=== PATIENT | male | born 1955 | race African-American/Black ===

== ENCOUNTER 2020-06-24 01:25 | Emergency (ER) | payer MEDICARE, MEDICAID ==
[~2020-06-24] VITALS: Ht 177.8 cm; Wt 105.0 kg
[~2020-06-24 01:25] MED LIST: LIPITOR
[2020-06-24] MEDS ORDERED: ONDANSETRON HCL 4MG/2ML INJ IV STA (02:08)
[2020-06-24 02:53] LABS: BASOPHILS % 1.2 % (0.0-2.0); EOSINOPHILS % 0.6 % (0.0-5.0); HEMATOCRIT. 47.5 % (42.0-52.0); LYMPHOCYTES % 27.6 % (20.0-50.0); MEAN CORPUSCULAR HEMOGLOBIN 24.4 pg (28.0-32.0); MEAN CORPUSCULAR VOLUME 77.3 fL (80.0-94.0); MONOCYTES % 7.8 % (2.0-8.0); NEUTROPHILS % 62.8 % (40.0-76.0); RED BLOOD CELL COUNT 6.14 mill/uL (4.7-6.1); RED CELL DISTRIBUTION WIDTH 14.9 % (11.6-14.6)
[2020-06-24 03:12] LABS: INR 1.2; PROTHROMBIN TIME 12.1 sec (9.6-11.0)
[2020-06-24 03:19] LABS: CHLORIDE 109 mEq/L (98-107)
[2020-06-24 03:27] LABS: ETHANOL BLOOD < 10 mg/dL
[2020-06-24 04:53] LABS: PLATELET 179 x1000/uL (130-400)
[2020-06-24 04:54] LABS: MEAN PLATELET VOLUME 9.1 fl (7.4-10.4)
[2020-06-24 05:00] VITALS: BP 151/81
[2020-06-24 05:57] LABS: CLARITY URINE CLEAR (CLEAR); COLOR URINE DARK YELLOW (YELLOW); KETONES URINE TRACE (NEGATIVE); LEUKOCYTE ESTERASE URINE NEGATIVE (NEGATIVE); NITRITE URINE NEGATIVE (NEGATIVE); OCCULT BLOOD URINE NEGATIVE (NEGATIVE); PROTEIN URINE 1+ (NEGATIVE); SPECIFIC GRAVITY URINE 1.028 (1.005-1.030)
[2020-06-24 06:12] LABS: *AMPHETAMINES SCREEN URINE NEGATIVE (NEGATIVE); *BARBITURATES SCREEN URINE NEGATIVE (NEGATIVE); *BENZODIAZEPINES SCREEN URINE NEGATIVE (NEGATIVE)
[2020-06-24 06:14] LABS: *COCAINE SCREEN URINE PRESUMTIVE POSITIVE (NEGATIVE); CANNABINOID URINE SCREEN NEGATIVE (NEGATIVE); METHADONE URINE SCREEN NEGATIVE (NEGATIVE); OPIATES URINE SCREEN NEGATIVE (NEGATIVE); PHENCYCLIDINE URINE SCREEN PRESUMTIVE POSITIVE (NEGATIVE)
== END 2020-06-24 06:10 | disposition home or self-care (01) ==
LOC: ER 01:25
DX: R55 Syncope and collapse (principal); R79.89 Other specified abnormal findings of blood chemistry; R17 Unspecified jaundice; E11.9 Type 2 diabetes mellitus without complications; I10 Essential (primary) hypertension
CPT/HCPCS: 36415; 71045; 80053; 80305; 80320; 81003; 82140; 82962; 83605; 83880; 84484; 85025; 93005; 99285; G0480

== ENCOUNTER 2021-03-22 11:20 | Emergency (ER) | payer MEDICARE, MEDICAID ==
[~2021-03-22] VITALS: Ht 175.3 cm; Wt 100.0 kg
[2021-03-22] MEDS ORDERED: KETOROLAC 30MG/ML VIAL IM ONE (12:30)
[2021-03-22] MEDS ORDERED: ACYCLOVIR 400 MG TABLET PO ONE (12:30)
[2021-03-22] MEDS ORDERED: TETRACAINE 0.5% OPHTH DROPS 4ML RIGHTEYE ONE (12:45)
[2021-03-22] MEDS ORDERED: FLUORESCEIN SODIUM 1MG/STRIP RIGHTEYE ONE (12:45)
[2021-03-22] MEDS ORDERED: IBUP-2029 MT (13:53)
[2021-03-22] MEDS ORDERED: ACYC200C PO (13:53)
[2021-03-22 14:06] VITALS: BP 159/81
== END 2021-03-22 14:08 | disposition home or self-care (01) ==
LOC: ER 11:20
DX: B02.9 Zoster without complications (principal); E11.9 Type 2 diabetes mellitus without complications; I10 Essential (primary) hypertension; Z88.8 Allergy status to other drugs, medicaments and biological substances; Z79.899 Other long term (current) drug therapy
CPT/HCPCS: 96372; 99283; J1885

== ENCOUNTER 2021-03-23 13:09 | Emergency (ER) | payer MEDICARE, MEDICAID ==
[~2021-03-23] VITALS: Ht 182.9 cm; Wt 82.0 kg
[~2021-03-23 13:09] MED LIST changes: +ACYC200C PO; +IBUP-2029 MT
[2021-03-23] MEDS ORDERED: ONDANSETRON HCL 4MG/2ML INJ IV STA (14:25)
[2021-03-23] MEDS ORDERED: MORPHINE SULFATE 4 MG/ML CPJ (NOT FOR IM USE) IV STA (14:25)
[2021-03-23] MEDS ORDERED: METHYLPREDNISOLONE SOD SUCC 125 MG/2 ML VIAL IV ONE (14:30)
[2021-03-23] MEDS ORDERED: DIPHENHYDRAMINE 50MG/ML VIAL IV ONE (14:30)
[2021-03-23 15:11] LABS: BASOPHILS % 1.7 % (0.0-2.0); EOSINOPHILS % 6.6 % (0.0-5.0); HEMATOCRIT. 46.3 % (42.0-52.0); HEMOGLOBIN. 14.9 g/dL (14.0-18.0); LYMPHOCYTES % 23.7 % (20.0-50.0); MEAN CORPUSCULAR HEMOGLOBIN 24.3 pg (28.0-32.0); MEAN CORPUSCULAR VOLUME 75.5 fL (80.0-94.0); MEAN PLATELET VOLUME 8.8 fl (7.4-10.4); MONOCYTES % 13.5 % (2.0-8.0); NEUTROPHILS % 54.5 % (40.0-76.0); PLATELET 180 x1000/uL (130-400); RED BLOOD CELL COUNT 6.14 mill/uL (4.7-6.1); RED CELL DISTRIBUTION WIDTH 14.7 % (11.6-14.6)
[2021-03-23 15:17] LABS: CHLORIDE 109 mEq/L (98-107)
[2021-03-23 20:55] VITALS: BP 158/89
== END 2021-03-23 21:05 | disposition left against medical advice (07) ==
LOC: ER 13:20
DX: B02.9 Zoster without complications (principal); I10 Essential (primary) hypertension; E11.9 Type 2 diabetes mellitus without complications; F17.210 Nicotine dependence, cigarettes, uncomplicated
CPT/HCPCS: 36415; 80053; 85025; 93005; 96374; 96375; 99284; 99406; J1200; J2270; J2405; J2930

== ENCOUNTER 2021-10-20 21:52 | Emergency (ER) | payer MEDICARE, MEDICAID ==
[~2021-10-20] VITALS: Ht 175.3 cm; Wt 84.0 kg
[~2021-10-20 21:52] MED LIST changes: -ACYC200C PO; +ACYC200C31 PO; +GABA100C MT
[2021-10-20] MEDS ORDERED: ONDANSETRON 4MG ODT PO STA (22:26)
[2021-10-20] MEDS ORDERED: SODIUM CHLORIDE 0.9% 1,000 ML IV ONE (22:30)
[2021-10-21 00:51] LABS: CLARITY URINE CLEAR (CLEAR); COLOR URINE DARK YELLOW (YELLOW); KETONES URINE TRACE (NEGATIVE); LEUKOCYTE ESTERASE URINE NEGATIVE (NEGATIVE); NITRITE URINE NEGATIVE (NEGATIVE); OCCULT BLOOD URINE NEGATIVE (NEGATIVE); PH URINE 5.5 (4.5-8.0); PROTEIN URINE 1+ (NEGATIVE); SPECIFIC GRAVITY URINE 1.031 (1.005-1.030)
[2021-10-21 00:51] LABS: BASOPHILS % 1.1 % (0.0-2.0); HEMATOCRIT. 49.6 % (42.0-52.0); HEMOGLOBIN. 15.6 g/dL (14.0-18.0); MEAN CORPUSCULAR VOLUME 76.3 fL (80.0-94.0); MEAN PLATELET VOLUME 8.8 fl (7.4-10.4); MONOCYTES % 10.5 % (2.0-8.0); NEUTROPHILS % 45.4 % (40.0-76.0); PLATELET 222 x1000/uL (130-400); RED BLOOD CELL COUNT 6.51 mill/uL (4.7-6.1)
[2021-10-21 00:55] LABS: CHLORIDE 108 mEq/L (98-107)
[2021-10-21 00:59] LABS: ETHANOL BLOOD < 10 mg/dL
[2021-10-21 01:08] LABS: *COCAINE SCREEN URINE PRESUMTIVE POSITIVE (NEGATIVE)
[2021-10-21 01:09] LABS: *AMPHETAMINES SCREEN URINE PRESUMTIVE POSITIVE (NEGATIVE); *BENZODIAZEPINES SCREEN URINE NEGATIVE (NEGATIVE); CANNABINOID URINE SCREEN NEGATIVE (NEGATIVE); METHADONE URINE SCREEN NEGATIVE (NEGATIVE); OPIATES URINE SCREEN PRESUMTIVE POSITIVE (NEGATIVE); PHENCYCLIDINE URINE SCREEN PRESUMTIVE POSITIVE (NEGATIVE)
[2021-10-21 01:10] LABS: *BARBITURATES SCREEN URINE NEGATIVE (NEGATIVE)
[2021-10-21 15:02] VITALS: BP 145/86
== END 2021-10-21 15:27 | disposition home or self-care (01) ==
LOC: ER 21:52
DX: F10.129 Alcohol abuse with intoxication, unspecified (principal); R45.851 Suicidal ideations; R45.850 Homicidal ideations; F14.10 Cocaine abuse, uncomplicated; F16.10 Hallucinogen abuse, uncomplicated; F15.10 Other stimulant abuse, uncomplicated; Y90.0 Blood alcohol level of less than 20 mg/100 ml; Z20.822 Contact with and (suspected) exposure to COVID-19; Z63.0 Problems in relationship with spouse or partner; F11.10 Opioid abuse, uncomplicated; R44.0 Auditory hallucinations; Z91.14 Patient's other noncompliance with medication regimen
CPT/HCPCS: 36415; 80053; 80305; 80320; 81003; 85025; 99285; C9803; J7030; Q0162; U0003; U0005; G0480

== ENCOUNTER 2021-10-24 01:18 | Emergency (ER) | payer MEDICARE, MEDICAID ==
[~2021-10-24] VITALS: Ht 175.3 cm; Wt 100.0 kg
[2021-10-24 01:19] VITALS: BP 138/60
== END 2021-10-24 04:00 | disposition home or self-care (01) ==
LOC: ER 01:18
DX: F41.9 Anxiety disorder, unspecified (principal); I10 Essential (primary) hypertension; E11.9 Type 2 diabetes mellitus without complications; Z88.6 Allergy status to analgesic agent; Z86.59 Personal history of other mental and behavioral disorders
CPT/HCPCS: 99283

== ENCOUNTER 2021-10-30 00:42 | Emergency (ER) | payer MEDICARE, MEDICAID ==
[~2021-10-30] VITALS: Ht 177.8 cm; Wt 73.0 kg
[2021-10-30 00:50] VITALS: BP 131/82
== END 2021-10-30 05:04 | disposition home or self-care (01) ==
LOC: ER 00:42
DX: M47.892 Other spondylosis, cervical region (principal); I10 Essential (primary) hypertension; E11.9 Type 2 diabetes mellitus without complications; F14.90 Cocaine use, unspecified, uncomplicated; F11.90 Opioid use, unspecified, uncomplicated
CPT/HCPCS: 71045; 99283

== ENCOUNTER 2021-10-31 17:53 | Emergency (ER) | payer MEDICARE, MEDICAID ==
[~2021-10-31] VITALS: Ht 175.3 cm; Wt 84.0 kg
[2021-10-31 19:56] LABS: BASOPHILS % 0.9 % (0.0-2.0); EOSINOPHILS % 3.2 % (0.0-5.0); HEMATOCRIT. 46.5 % (42.0-52.0); HEMOGLOBIN. 14.9 g/dL (14.0-18.0); LYMPHOCYTES % 33.9 % (20.0-50.0); MEAN CORPUSCULAR HEMOGLOBIN 24.3 pg (28.0-32.0); MEAN CORPUSCULAR VOLUME 75.7 fL (80.0-94.0); MEAN PLATELET VOLUME 8.8 fl (7.4-10.4); MONOCYTES % 8.4 % (2.0-8.0); NEUTROPHILS % 53.6 % (40.0-76.0); PLATELET 227 x1000/uL (130-400); RED BLOOD CELL COUNT 6.15 mill/uL (4.7-6.1); RED CELL DISTRIBUTION WIDTH 14.7 % (11.6-14.6)
[2021-10-31 20:02] LABS: CHLORIDE 112 mEq/L (98-107)
[2021-10-31 20:08] LABS: ETHANOL BLOOD < 10 mg/dL
[2021-10-31 21:53] LABS: CLARITY URINE CLEAR (CLEAR); COLOR URINE YELLOW (YELLOW); KETONES URINE NEGATIVE (NEGATIVE); LEUKOCYTE ESTERASE URINE NEGATIVE (NEGATIVE); NITRITE URINE NEGATIVE (NEGATIVE); OCCULT BLOOD URINE NEGATIVE (NEGATIVE); PROTEIN URINE NEGATIVE (NEGATIVE); SPECIFIC GRAVITY URINE 1.018 (1.005-1.030)
[2021-10-31] MEDS ORDERED: ZOLPIDEM TARTRATE 5MG TABLET PO ONE (22:00)
[2021-10-31 22:05] LABS: *AMPHETAMINES SCREEN URINE NEGATIVE (NEGATIVE); *BARBITURATES SCREEN URINE NEGATIVE (NEGATIVE); *BENZODIAZEPINES SCREEN URINE PRESUMTIVE POSITIVE (NEGATIVE); *COCAINE SCREEN URINE PRESUMTIVE POSITIVE (NEGATIVE); CANNABINOID URINE SCREEN NEGATIVE (NEGATIVE)
[2021-10-31 22:06] LABS: METHADONE URINE SCREEN NEGATIVE (NEGATIVE); OPIATES URINE SCREEN PRESUMTIVE POSITIVE (NEGATIVE); PHENCYCLIDINE URINE SCREEN PRESUMTIVE POSITIVE (NEGATIVE)
[2021-11-02 12:00] VITALS: BP 135/85
== END 2021-11-02 12:46 | disposition home or self-care (01) ==
LOC: ER 17:53
DX: R45.851 Suicidal ideations (principal); F14.10 Cocaine abuse, uncomplicated; E11.9 Type 2 diabetes mellitus without complications; I10 Essential (primary) hypertension; Z20.822 Contact with and (suspected) exposure to COVID-19; Z86.59 Personal history of other mental and behavioral disorders
CPT/HCPCS: 36415; 80053; 80305; 80307; 80320; 80329; 81003; 85025; 93005; 99285; C9803; U0003; U0005; G0480

== ENCOUNTER 2021-11-27 07:02 | Emergency (ER) | payer MEDICARE, MEDICAID ==
[~2021-11-27] VITALS: Ht 182.9 cm; Wt 115.0 kg
[2021-11-27 07:07] VITALS: BP 110/70
[2021-11-27 09:43] LABS: CLARITY URINE CLEAR (CLEAR); COLOR URINE YELLOW (YELLOW); KETONES URINE NEGATIVE (NEGATIVE); LEUKOCYTE ESTERASE URINE NEGATIVE (NEGATIVE); NITRITE URINE NEGATIVE (NEGATIVE); OCCULT BLOOD URINE NEGATIVE (NEGATIVE); PROTEIN URINE NEGATIVE (NEGATIVE); SPECIFIC GRAVITY URINE 1.003 (1.005-1.030); UROBILINOGEN URINE 0.2 E.U./dL (0.2-1.0)
[2021-11-27 10:12] LABS: *AMPHETAMINES SCREEN URINE NEGATIVE (NEGATIVE); *BARBITURATES SCREEN URINE NEGATIVE (NEGATIVE); *BENZODIAZEPINES SCREEN URINE NEGATIVE (NEGATIVE)
[2021-11-27 10:13] LABS: *COCAINE SCREEN URINE PRESUMTIVE POSITIVE (NEGATIVE); CANNABINOID URINE SCREEN NEGATIVE (NEGATIVE); METHADONE URINE SCREEN NEGATIVE (NEGATIVE); OPIATES URINE SCREEN NEGATIVE (NEGATIVE); PHENCYCLIDINE URINE SCREEN NEGATIVE (NEGATIVE)
== END 2021-11-27 10:31 | disposition left against medical advice (07) ==
LOC: ER 07:42
DX: F11.10 Opioid abuse, uncomplicated (principal); E11.9 Type 2 diabetes mellitus without complications; I10 Essential (primary) hypertension
CPT/HCPCS: 80305; 81003; 99283

== ENCOUNTER 2022-03-08 13:33 | Emergency (ER) | payer MEDICARE, MEDICAID ==
[~2022-03-08] VITALS: Ht 185.4 cm; Wt 86.0 kg
[~2022-03-08 13:33] MED LIST changes: +QUET25TA MT
[2022-03-08 13:41] VITALS: BP 143/92
[2022-03-08] MEDS ORDERED: LOSA25TA26 MT (14:12)
[2022-03-08] MEDS ORDERED: METF-414 MT (14:12)
[2022-03-08] MEDS ORDERED: QUET25TA MT (14:12)
[2022-03-08] MEDS ORDERED: TOPUD MT (14:57)
== END 2022-03-08 15:00 | disposition home or self-care (01) ==
LOC: ER 13:33
DX: Z76.0 Encounter for issue of repeat prescription (principal); I10 Essential (primary) hypertension; E11.9 Type 2 diabetes mellitus without complications; F31.9 Bipolar disorder, unspecified
CPT/HCPCS: 99283

== ENCOUNTER 2022-10-14 12:14 | Emergency (ER) | payer MEDICARE, MEDICAID ==
[~2022-10-14] VITALS: Ht 175.3 cm; Wt 93.0 kg
[~2022-10-14 12:14] MED LIST changes: -ACYC200C31 PO; +DILT120C88 MT; -IBUP-2029 MT; +LOSA50TA3 PO; +METF-414 MT; +TOPUD MT
[2022-10-14 12:30] VITALS: BP 137/87
[2022-10-14 19:31] LABS: BASOPHILS % 0.8 % (0.0-2.0); EOSINOPHILS % 4.8 % (0.0-5.0); HEMOGLOBIN. 13.5 g/dL (14.0-18.0); LYMPHOCYTES % 33.6 % (20.0-50.0); MEAN CORPUSCULAR HEMOGLOBIN 24.5 pg (28.0-32.0); MEAN CORPUSCULAR VOLUME 78.3 fL (80.0-94.0); MEAN PLATELET VOLUME 9.2 fl (7.4-10.4); MONOCYTES % 11.1 % (2.0-8.0); NEUTROPHILS % 49.7 % (40.0-76.0); PLATELET 161 x1000/uL (130-400); RED BLOOD CELL COUNT 5.49 mill/uL (4.7-6.1); RED CELL DISTRIBUTION WIDTH 15.6 % (11.6-14.6)
[2022-10-14 19:40] LABS: CHLORIDE 112 mEq/L (98-107)
[2022-10-14] MEDS ORDERED: FURO-152 PO (23:11)
[2022-10-14] MEDS ORDERED: TRAM50TA3 MT (23:12)
[2022-10-14] MEDS ORDERED: ACET-3524 PO (23:17)
== END 2022-10-15 00:53 | disposition home or self-care (01) ==
LOC: ER 12:14
DX: I11.0 Hypertensive heart disease with heart failure (principal); I50.9 Heart failure, unspecified; Z91.14 Patient's other noncompliance with medication regimen; R94.31 Abnormal electrocardiogram [ECG] [EKG]
CPT/HCPCS: 36415; 71045; 80053; 84484; 85025; 93005; 99285

== ENCOUNTER 2022-10-27 22:23 | Inpatient (IN) | payer MEDICARE, MEDICAID ==
[~2022-10-27] VITALS: Ht 175.3 cm; Wt 81.6 kg
[~2022-10-27 22:23] MED LIST changes: +ACET-3524 PO; +FURO-152 PO
[2022-10-27 23:16] LABS: HEMATOCRIT. 45.7 % (42.0-52.0); HEMOGLOBIN. 14.2 g/dL (14.0-18.0); MEAN CORPUSCULAR HEMOGLOBIN 24.6 pg (28.0-32.0); MEAN CORPUSCULAR VOLUME 79.1 fL (80.0-94.0); MEAN PLATELET VOLUME 9.6 fl (7.4-10.4); PLATELET 137 x1000/uL (130-400); RED BLOOD CELL COUNT 5.78 mill/uL (4.7-6.1); RED CELL DISTRIBUTION WIDTH 16.1 % (11.6-14.6)
[2022-10-27 23:25] LABS: CHLORIDE 112 mEq/L (98-107)
[2022-10-27 23:34] LABS: ETHANOL BLOOD < 10 mg/dL
[2022-10-27 23:42] LABS: INR 1.5; PROTHROMBIN TIME 15.3 sec (9.6-11.0)
[2022-10-28 00:04] LABS: NUCLEATED RED BLOOD CELLS 1 /100 WBC; PLATELET ESTIMATE NORMAL
[2022-10-28 00:24] LABS: CLARITY URINE CLOUDY (CLEAR); COLOR URINE DARK YELLOW (YELLOW); KETONES URINE TRACE (NEGATIVE); LEUKOCYTE ESTERASE URINE 1+ (NEGATIVE); NITRITE URINE NEGATIVE (NEGATIVE); OCCULT BLOOD URINE NEGATIVE (NEGATIVE); PROTEIN URINE 3+ (NEGATIVE); SPECIFIC GRAVITY URINE 1.025 (1.005-1.030)
[2022-10-28 00:46] LABS: *AMPHETAMINES SCREEN URINE NEGATIVE (NEGATIVE); *BARBITURATES SCREEN URINE NEGATIVE (NEGATIVE); *BENZODIAZEPINES SCREEN URINE NEGATIVE (NEGATIVE); *COCAINE SCREEN URINE PRESUMTIVE POSITIVE (NEGATIVE); CANNABINOID URINE SCREEN PRESUMTIVE POSITIVE (NEGATIVE); METHADONE URINE SCREEN NEGATIVE (NEGATIVE); OPIATES URINE SCREEN PRESUMTIVE POSITIVE (NEGATIVE); PHENCYCLIDINE URINE SCREEN PRESUMTIVE POSITIVE (NEGATIVE)
[2022-10-28] MEDS ORDERED: LORAZEPAM 2MG/ML CPJ IV NR (01:15)
[2022-10-28] MEDS ORDERED: FUROSEMIDE 40MG/4ML VIAL IVP ONE (04:00)
[2022-10-28] MEDS ORDERED: ACETAMINOPHEN 325MG TABLET PO PRN (12:15)
[2022-10-28] MEDS ORDERED: ONDANSETRON HCL 4MG/2ML INJ IV PRN (12:15)
[2022-10-28 16:00] VITALS: BP 149/84
[2022-10-28 16:39] VITALS: BP 149/84
[2022-10-28] MEDS ORDERED: METOLAZONE 2.5MG TABLET PO NR (16:45)
[2022-10-28] MEDS ORDERED: FUROSEMIDE 100MG/10ML VIAL IVP SCH (17:00)
[2022-10-28 20:00] VITALS: BP 139/99
[2022-10-28] MEDS: FUROSEMIDE 40MG TABLET PO SCH (21:07)
[2022-10-28] MEDS: HYDROCODONE/ACETAMINOPHEN 10/325MG TABLET PO PRN (21:54)
[2022-10-28] MEDS ORDERED: NALOXONE HCL 0.4MG/ML VIAL IV PRN (22:00)
[2022-10-29] VITALS: BP 152/82
[2022-10-29 04:00] VITALS: BP 167/66
[2022-10-29 06:45] LABS: BASOPHILS % 0.6 % (0.0-2.0); EOSINOPHILS % 5.6 % (0.0-5.0); HEMATOCRIT. 40.6 % (42.0-52.0); HEMOGLOBIN. 12.9 g/dL (14.0-18.0); LYMPHOCYTES % 38.4 % (20.0-50.0); MEAN CORPUSCULAR HEMOGLOBIN 24.4 pg (28.0-32.0); MEAN CORPUSCULAR VOLUME 76.7 fL (80.0-94.0); MEAN PLATELET VOLUME 10.1 fl (7.4-10.4); MONOCYTES % 14.9 % (2.0-8.0); NEUTROPHILS % 40.5 % (40.0-76.0); PLATELET 136 x1000/uL (130-400); RED BLOOD CELL COUNT 5.29 mill/uL (4.7-6.1); RED CELL DISTRIBUTION WIDTH 15.4 % (11.6-14.6)
[2022-10-29 07:59] LABS: CHLORIDE 106 mEq/L (98-107)
[2022-10-29 08:00] VITALS: BP 146/90
[2022-10-29] MEDS: FUROSEMIDE 40MG TABLET PO SCH (08:36)
[2022-10-29] MEDS: HYDROCODONE/ACETAMINOPHEN 10/325MG TABLET PO PRN (08:50)
[2022-10-29] MEDS ORDERED: LOSARTAN POTASSIUM 50 MG TABLET PO SCH (09:00)
[2022-10-29] MEDS ORDERED: SPIRONOLACTONE 25MG TABLET PO SCH (09:00)
[2022-10-29 12:00] VITALS: BP 143/77
[2022-10-29] MEDS ORDERED: CARV12.545 MT (12:00)
[2022-10-29] MEDS ORDERED: POTA-205 MT (12:00)
[2022-10-29] MEDS ORDERED: METOLAZONE 2.5MG TABLET PO NR (12:00)
[2022-10-29] MEDS ORDERED: SPIR25TA PO (12:00)
[2022-10-29] MEDS ORDERED: LOSA50TA3 PO (12:00)
[2022-10-29] MEDS ORDERED: FURO40TA5 PO (12:00)
[2022-10-29 12:41] VITALS: BP 143/77
[2022-10-29] MEDS ORDERED: FUROSEMIDE 40MG TABLET PO NR (15:30)
== END 2022-10-29 19:49 | disposition home or self-care (01) | DRG 194 ==
LOC: ER 22:23 → 3WST 10-28 03:49 → EDBEDREQTM 10-28 03:55 → EDBEDREQ 10-28 03:55
PROVIDERS: ADMIT Internal Medicine; ATTEND Internal Medicine
DX: I11.0 Hypertensive heart disease with heart failure (principal); N17.0 Acute kidney failure with tubular necrosis; E44.1 Mild protein-calorie malnutrition; I50.23 Acute on chronic systolic (congestive) heart failure; E11.9 Type 2 diabetes mellitus without complications; F19.10 Other psychoactive substance abuse, uncomplicated; F20.9 Schizophrenia, unspecified; F17.210 Nicotine dependence, cigarettes, uncomplicated; I42.9 Cardiomyopathy, unspecified; R74.01 Elevation of levels of liver transaminase levels; F31.9 Bipolar disorder, unspecified; Z91.14 Patient's other noncompliance with medication regimen; Z88.6 Allergy status to analgesic agent; Z68.26 Body mass index [BMI] 26.0-26.9, adult; Z82.49 Family history of ischemic heart disease and other diseases of the circulatory system
CPT/HCPCS: 36415; 71045; 76705; 76870; 80048; 80053; 80305; 80320; 81003; 82248; 83605; 83880; 84484; 85025; 93970; 93976; 99285; C1893; J1940; J2060; G0480

== ENCOUNTER 2023-02-04 10:07 | Inpatient (IN) | payer MEDICARE, MEDICAID ==
[~2023-02-04] VITALS: Ht 182.9 cm; Wt 95.3 kg
[~2023-02-04 10:07] MED LIST changes: +CARV12.545 MT; -DILT120C88 MT; -FURO-152 PO; +FURO40TA5 PO; +POTA-205 MT; +SPIR25TA PO
[2023-02-04] MEDS ORDERED: FUROSEMIDE 40MG/4ML VIAL IVP NR (10:30)
[2023-02-04 18:53] LABS: BASOPHILS % 1.3 % (0.0-2.0); EOSINOPHILS % 3.2 % (0.0-5.0); HEMATOCRIT. 46.4 % (42.0-52.0); HEMOGLOBIN. 14.6 g/dL (14.0-18.0); LYMPHOCYTES % 34.8 % (20.0-50.0); MEAN CORPUSCULAR HEMOGLOBIN 25.4 pg (28.0-32.0); MEAN PLATELET VOLUME 8.8 fl (7.4-10.4); MONOCYTES % 16.2 % (2.0-8.0); NEUTROPHILS % 44.5 % (40.0-76.0); PLATELET 152 x1000/uL (130-400); RED BLOOD CELL COUNT 5.73 mill/uL (4.7-6.1); RED CELL DISTRIBUTION WIDTH 16.9 % (11.6-14.6)
[2023-02-04 19:01] LABS: CHLORIDE 109 mEq/L (98-107)
[2023-02-04 19:03] LABS: INR 1.7; PROTHROMBIN TIME 17.7 sec (9.6-11.0)
[2023-02-04] MEDS ORDERED: CARVEDILOL 6.25 MG TABLET PO SCH (19:11)
[2023-02-04 20:19] LABS: ETHANOL BLOOD < 10 mg/dL
[2023-02-04 20:24] LABS: CLARITY URINE CLOUDY (CLEAR); COLOR URINE DARK YELLOW (YELLOW); KETONES URINE NEGATIVE (NEGATIVE); LEUKOCYTE ESTERASE URINE 2+ (NEGATIVE); NITRITE URINE NEGATIVE (NEGATIVE); OCCULT BLOOD URINE 2+ (NEGATIVE); PH URINE 5.5 (4.5-8.0); PROTEIN URINE 1+ (NEGATIVE); SPECIFIC GRAVITY URINE 1.015 (1.005-1.030)
[2023-02-04 20:53] LABS: *AMPHETAMINES SCREEN URINE NEGATIVE (NEGATIVE); *BARBITURATES SCREEN URINE NEGATIVE (NEGATIVE); *BENZODIAZEPINES SCREEN URINE NEGATIVE (NEGATIVE); *COCAINE SCREEN URINE PRESUMTIVE POSITIVE (NEGATIVE); CANNABINOID URINE SCREEN NEGATIVE (NEGATIVE); METHADONE URINE SCREEN NEGATIVE (NEGATIVE); OPIATES URINE SCREEN PRESUMTIVE POSITIVE (NEGATIVE); PHENCYCLIDINE URINE SCREEN PRESUMTIVE POSITIVE (NEGATIVE)
[2023-02-04] MEDS ORDERED: DIGOXIN 500MCG/2ML AMP IV NR (22:00)
[2023-02-05 00:39] LABS: CHLORIDE 110 mEq/L (98-107)
[2023-02-05 01:25] LABS: DIGOXIN < 0.1 ng/mL (0.9-2.0)
[2023-02-05 01:45] VITALS: BP 98/72
[2023-02-05 04:00] VITALS: BP 100/54
[2023-02-05] MEDS ORDERED: ONDANSETRON HCL 4MG/2ML INJ IV PRN (04:15)
[2023-02-05] MEDS ORDERED: ACETAMINOPHEN 325MG TABLET PO PRN (04:15)
[2023-02-05 08:00] VITALS: BP 107/80
[2023-02-05] MEDS: FUROSEMIDE 40MG/4ML VIAL IVP SCH ×2 (08:54→21:24)
[2023-02-05] MEDS: GABAPENTIN 100MG CAPSULE PO SCH ×3 (08:54→18:01)
[2023-02-05] MEDS: SPIRONOLACTONE 25MG TABLET PO SCH (08:54)
[2023-02-05] MEDS ORDERED: CARVEDILOL 12.5MG TABLET PO SCH (09:00)
[2023-02-05] MEDS ORDERED: METFORMIN HCL 500MG TABLET PO SCH (09:00)
[2023-02-05] MEDS ORDERED: FUROSEMIDE 40MG/4ML VIAL IVP SCH (09:00)
[2023-02-05] MEDS ORDERED: LOSARTAN POTASSIUM 50 MG TABLET PO SCH (09:00)
[2023-02-05] MEDS ORDERED: CARVEDILOL 6.25 MG TABLET PO SCH (09:00)
[2023-02-05 12:00] VITALS: BP 100/66
[2023-02-05 16:00] VITALS: BP 110/61
[2023-02-05 20:00] VITALS: BP 120/75
[2023-02-05 20:21] LABS: BASOPHILS % 0.6 % (0.0-2.0); EOSINOPHILS % 3.4 % (0.0-5.0); HEMATOCRIT. 44.2 % (42.0-52.0); LYMPHOCYTES % 38.3 % (20.0-50.0); MEAN CORPUSCULAR HEMOGLOBIN 25.4 pg (28.0-32.0); MEAN CORPUSCULAR VOLUME 80.5 fL (80.0-94.0); MEAN PLATELET VOLUME 9.6 fl (7.4-10.4); MONOCYTES % 13.6 % (2.0-8.0); NEUTROPHILS % 44.1 % (40.0-76.0); PLATELET 143 x1000/uL (130-400); RED BLOOD CELL COUNT 5.49 mill/uL (4.7-6.1); RED CELL DISTRIBUTION WIDTH 16.6 % (11.6-14.6)
[2023-02-05 20:28] LABS: INR 1.7; PROTHROMBIN TIME 17.2 sec (9.6-11.0)
[2023-02-05 20:35] LABS: CHLORIDE 109 mEq/L (98-107)
[2023-02-05] MEDS ORDERED: ENOXAPARIN 30MG/0.3ML SYR SUBCUT SCH (21:00)
[2023-02-05] MEDS ORDERED: QUETIAPINE FUMARATE 25MG TABLET PO SCH (21:00)
[2023-02-05] MEDS ORDERED: ATORVASTATIN CALCIUM 40MG TABLET PO SCH (21:00)
[2023-02-05] MEDS ORDERED: CARVEDILOL 3.125 MG TABLET PO SCH (21:00)
[2023-02-05 21:15] LABS: HEPATITIS B SURFACE ANTIGEN NEGATIVE
[2023-02-06] VITALS: BP 121/78
[2023-02-06 04:00] VITALS: BP 130/82
[2023-02-06 08:00] VITALS: BP 112/80
[2023-02-06] MEDS ORDERED: LOSARTAN POTASSIUM 25 MG TABLET PO SCH (09:00)
[2023-02-06] MEDS: FUROSEMIDE 40MG/4ML VIAL IVP SCH (09:33)
[2023-02-06] MEDS: GABAPENTIN 100MG CAPSULE PO SCH ×2 (09:33→13:08)
[2023-02-06] MEDS: SPIRONOLACTONE 25MG TABLET PO SCH (09:33)
[2023-02-06] MEDS ORDERED: METOLAZONE 2.5MG TABLET PO NR (10:30)
[2023-02-06 12:00] VITALS: BP 149/90
[2023-02-06] MEDS ORDERED: FURO40TA5 PO (12:12)
[2023-02-06] MEDS ORDERED: CARV12.545 MT (12:12)
[2023-02-06] MEDS ORDERED: LOSA50TA3 PO (12:12)
[2023-02-06 12:48] VITALS: BP 142/90
[2023-02-06] MEDS ORDERED: TAMS-11 MT (13:36)
== END 2023-02-06 17:20 | disposition home or self-care (01) | DRG 194 ==
LOC: ER 10:38 → MICUSO 12:59 → EDBEDREQTM 13:15 → EDBEDREQ 13:15 → 7EST 02-05 01:55
PROVIDERS: ADMIT Internal Medicine; ATTEND Internal Medicine
DX: I11.0 Hypertensive heart disease with heart failure (principal); J96.00 Acute respiratory failure, unspecified whether with hypoxia or hypercapnia; N17.0 Acute kidney failure with tubular necrosis; G92.9 Unspecified toxic encephalopathy; E44.0 Moderate protein-calorie malnutrition; I50.23 Acute on chronic systolic (congestive) heart failure; I42.9 Cardiomyopathy, unspecified; K74.60 Unspecified cirrhosis of liver; R74.01 Elevation of levels of liver transaminase levels; F20.9 Schizophrenia, unspecified; R73.03 Prediabetes; F19.10 Other psychoactive substance abuse, uncomplicated; F14.10 Cocaine abuse, uncomplicated; F17.210 Nicotine dependence, cigarettes, uncomplicated; Z88.6 Allergy status to analgesic agent; Z82.49 Family history of ischemic heart disease and other diseases of the circulatory system; Z79.899 Other long term (current) drug therapy; Z68.28 Body mass index [BMI] 28.0-28.9, adult
CPT/HCPCS: 36415; 71045; 74176; 80048; 80053; 80162; 80305; 80320; 81003; 84484; 85025; 86803; 87186; 87340; 99285; J1160; J1940; G0480

== ENCOUNTER 2023-04-11 07:25 | Inpatient (IN) | payer MEDICARE, MEDICAID ==
[~2023-04-11] VITALS: Ht 175.3 cm; Wt 90.7 kg
[~2023-04-11 07:25] MED LIST changes: +LOSA-413 PO; -LOSA50TA3 PO; +TAMS-11 MT
[2023-04-11] MEDS ORDERED: FUROSEMIDE 40MG/4ML VIAL IVP ONE (08:00)
[2023-04-11 08:57] LABS: BASOPHILS % 0.6 % (0.0-2.0); EOSINOPHILS % 2.6 % (0.0-5.0); HEMATOCRIT. 41.7 % (42.0-52.0); HEMOGLOBIN. 13.1 g/dL (14.0-18.0); LYMPHOCYTES % 38.6 % (20.0-50.0); MEAN CORPUSCULAR HEMOGLOBIN 25.6 pg (28.0-32.0); MEAN CORPUSCULAR VOLUME 81.5 fL (80.0-94.0); MEAN PLATELET VOLUME 9.4 fl (7.4-10.4); MONOCYTES % 13.3 % (2.0-8.0); NEUTROPHILS % 44.9 % (40.0-76.0); PLATELET 133 x1000/uL (130-400); RED BLOOD CELL COUNT 5.11 mill/uL (4.7-6.1); RED CELL DISTRIBUTION WIDTH 16.9 % (11.6-14.6)
[2023-04-11 09:04] LABS: CHLORIDE 113 mEq/L (98-107)
[2023-04-11] MEDS ORDERED: CEFTRIAXONE 1GM PREMIX 50 ML IV NR (10:45)
[2023-04-11] MEDS ORDERED: FUROSEMIDE 40MG/4ML VIAL IVP NR (11:00)
[2023-04-11] MEDS ORDERED: CARVEDILOL 12.5MG TABLET PO NR (12:00)
[2023-04-11] MEDS: FUROSEMIDE 100MG/10ML VIAL IVP SCH ×2 (12:00→16:16)
[2023-04-11] MEDS ORDERED: ONDANSETRON HCL 4MG/2ML INJ IV PRN (12:00)
[2023-04-11 14:00] VITALS: BP_SYST 152; BP_DIAS 11; BP_DIAS 52
[2023-04-11] MEDS ORDERED: NALOXONE HCL 0.4MG/ML VIAL IV PRN (14:30)
[2023-04-11] MEDS ORDERED: TRAMADOL 50MG TABLET PO PRN (14:30)
[2023-04-11 16:00] VITALS: BP 158/107
[2023-04-11 17:11] LABS: *AMPHETAMINES SCREEN URINE NEGATIVE (NEGATIVE); *BARBITURATES SCREEN URINE NEGATIVE (NEGATIVE); *BENZODIAZEPINES SCREEN URINE NEGATIVE (NEGATIVE); *COCAINE SCREEN URINE PRESUMTIVE POSITIVE (NEGATIVE); CANNABINOID URINE SCREEN NEGATIVE (NEGATIVE); METHADONE URINE SCREEN NEGATIVE (NEGATIVE); OPIATES URINE SCREEN NEGATIVE (NEGATIVE); PHENCYCLIDINE URINE SCREEN NEGATIVE (NEGATIVE)
[2023-04-11] MEDS ORDERED: POTA-205 MT (17:39)
[2023-04-11] MEDS ORDERED: GABA-529 MT (17:39)
[2023-04-11 20:00] VITALS: BP 144/95
[2023-04-11] MEDS: CARVEDILOL 12.5MG TABLET PO SCH (20:56)
[2023-04-11] MEDS ORDERED: ZOLPIDEM TARTRATE 5MG TABLET PO PRN (21:00)
[2023-04-11] MEDS ORDERED: HYDROCODONE/ACETAMINOPHEN 5/325MG TABLET PO PRN (22:00)
[2023-04-11] MEDS: HYDROCODONE/ACETAMINOPHEN 5/325MG TABLET PO PRN (22:55)
[2023-04-12 00:46] VITALS: BP 140/91
[2023-04-12 04:00] VITALS: BP 126/83
[2023-04-12 07:21] LABS: CHLORIDE 106 mEq/L (98-107)
[2023-04-12 08:00] VITALS: BP 112/75
[2023-04-12] MEDS ORDERED: METOLAZONE 2.5MG TABLET PO NR (08:00)
[2023-04-12] MEDS: FUROSEMIDE 100MG/10ML VIAL IVP SCH ×2 (10:15→17:18)
[2023-04-12] MEDS: CARVEDILOL 12.5MG TABLET PO SCH ×2 (10:15→20:29)
[2023-04-12 12:00] VITALS: BP 115/75
[2023-04-12] MEDS: HYDROCODONE/ACETAMINOPHEN 5/325MG TABLET PO PRN ×2 (12:14→20:30)
[2023-04-12] MEDS ORDERED: ENOXAPARIN 40MG/0.4ML SYR SUBCUT SCH (15:00)
[2023-04-12 16:00] VITALS: BP 103/73
[2023-04-12 20:00] VITALS: BP 111/66
[2023-04-13] VITALS: BP 108/76
[2023-04-13 04:00] VITALS: BP 91/54
[2023-04-13 08:00] VITALS: BP 109/71
[2023-04-13] MEDS ORDERED: FUROSEMIDE 40MG TABLET PO SCH (09:00)
[2023-04-13] MEDS: CARVEDILOL 12.5MG TABLET PO SCH (09:00)
[2023-04-13] MEDS ORDERED: ENOXAPARIN 30MG/0.3ML SYR SUBCUT SCH (09:00)
[2023-04-13] MEDS: HYDROCODONE/ACETAMINOPHEN 5/325MG TABLET PO PRN (10:17)
[2023-04-13] MEDS ORDERED: POTA-205 MT (10:55)
[2023-04-13] MEDS ORDERED: LOSA25TA26 MT (10:55)
[2023-04-13] MEDS ORDERED: CARV3.1242 MT (10:55)
[2023-04-13] MEDS ORDERED: FURO40TA5 PO (10:55)
[2023-04-13] MEDS ORDERED: METOLAZONE 2.5MG TABLET PO NR (11:00)
[2023-04-13 12:00] VITALS: BP 109/70
[2023-04-13 14:17] VITALS: BP 109/70
== END 2023-04-13 18:18 | disposition home or self-care (01) | DRG 194 ==
LOC: ER 07:25 → 7WST 11:26 → EDBEDREQ 11:45 → EDBEDREQTM 11:45
PROVIDERS: ADMIT Internal Medicine; ATTEND Internal Medicine
DX: I13.0 Hypertensive heart and chronic kidney disease with heart failure and stage 1 through stage 4 chronic kidney disease, or unspecified chronic kidney disease (principal); E43 Unspecified severe protein-calorie malnutrition; N17.9 Acute kidney failure, unspecified; E11.22 Type 2 diabetes mellitus with diabetic chronic kidney disease; Z68.29 Body mass index [BMI] 29.0-29.9, adult; I50.23 Acute on chronic systolic (congestive) heart failure; F14.90 Cocaine use, unspecified, uncomplicated; F17.210 Nicotine dependence, cigarettes, uncomplicated; N18.9 Chronic kidney disease, unspecified; Z82.49 Family history of ischemic heart disease and other diseases of the circulatory system; Z88.6 Allergy status to analgesic agent; Z91.148 Patient's other noncompliance with medication regimen for other reason
CPT/HCPCS: 36415; 71045; 80048; 80053; 80305; 83036; 83880; 84145; 84484; 85025; 93005; 93306; 99285; J0696; J1650; J1940

== ENCOUNTER 2023-06-13 22:40 | Emergency (ER) | payer MEDICARE, MEDICAID ==
[~2023-06-13] VITALS: Ht 175.3 cm; Wt 65.0 kg
[~2023-06-13 22:40] MED LIST changes: -CARV12.545 MT; +CARV3.1242 MT; +GABA-529 MT; -LOSA-413 PO; +LOSA25TA26 MT
[2023-06-13 22:47] VITALS: BP 101/68; PULSE 107; RESP 16; TEMP 98.5; O2SAT 99
== END 2023-06-14 01:00 | disposition left against medical advice (07) ==
LOC: ER 22:40
DX: Z53.21 Procedure and treatment not carried out due to patient leaving prior to being seen by health care provider (principal)
CPT/HCPCS: 99281

== ENCOUNTER 2023-06-20 22:04 | Emergency (ER) | payer MEDICARE, MEDICAID ==
[2023-06-20 22:11] VITALS: BP 118/83; PULSE 93; RESP 17; TEMP 98.5
[2023-06-21] MEDS ORDERED: CEPH500C2 MT (14:06)
== END 2023-06-21 01:05 | disposition home or self-care (01) ==
LOC: ER 22:04
DX: F41.9 Anxiety disorder, unspecified (principal); I11.0 Hypertensive heart disease with heart failure; I50.9 Heart failure, unspecified; E11.9 Type 2 diabetes mellitus without complications; Z79.899 Other long term (current) drug therapy
CPT/HCPCS: 99283

== ENCOUNTER 2023-06-21 06:43 | Emergency (ER) | payer MEDICARE, MEDICAID ==
[~2023-06-21] VITALS: Ht 172.7 cm; Wt 82.0 kg
[2023-06-21 06:46] VITALS: BP 135/94; PULSE 116; RESP 16; TEMP 98.3; O2SAT 98
[2023-06-21] MEDS ORDERED: CEPH500C2 MT (14:06)
== END 2023-06-21 10:07 | disposition left against medical advice (07) ==
LOC: ER 06:48
DX: R21 Rash and other nonspecific skin eruption (principal); Z53.21 Procedure and treatment not carried out due to patient leaving prior to being seen by health care provider
CPT/HCPCS: 99281

== ENCOUNTER 2023-06-21 10:48 | Emergency (ER) | payer MEDICARE, MEDICAID ==
[~2023-06-21] VITALS: Ht 175.3 cm; Wt 84.0 kg
[2023-06-21 11:45] VITALS: BP 118/81; PULSE 105; RESP 18; TEMP 98.9; O2SAT 100
[2023-06-21] MEDS ORDERED: CEPH500C2 MT (14:06)
== END 2023-06-21 13:05 | disposition home or self-care (01) ==
LOC: ER 10:48
DX: L03.119 Cellulitis of unspecified part of limb (principal); I11.0 Hypertensive heart disease with heart failure; I50.9 Heart failure, unspecified
CPT/HCPCS: 99283

== ENCOUNTER 2023-06-30 13:01 | Emergency (ER) | payer MEDICARE, MEDICAID ==
[~2023-06-30] VITALS: Ht 177.8 cm; Wt 70.0 kg
[~2023-06-30 13:01] MED LIST changes: +CEPH500C2 MT; +FURO-151 PO
[2023-06-30 13:11] VITALS: O2SAT 98
[2023-06-30 14:25] LABS: BASOPHILS % 0.9 % (0.0-2.0); EOSINOPHILS % 3.7 % (0.0-5.0); HEMATOCRIT. 41.8 % (42.0-52.0); HEMOGLOBIN. 12.9 g/dL (14.0-18.0); LYMPHOCYTES % 25.7 % (20.0-50.0); MEAN CORPUSCULAR HEMOGLOBIN 25.1 pg (28.0-32.0); MEAN CORPUSCULAR VOLUME 81.1 fL (80.0-94.0); MEAN PLATELET VOLUME 9.4 fl (7.4-10.4); MONOCYTES % 14.6 % (2.0-8.0); NEUTROPHILS % 55.1 % (40.0-76.0); PLATELET 137 x1000/uL (130-400); RED BLOOD CELL COUNT 5.15 mill/uL (4.7-6.1); RED CELL DISTRIBUTION WIDTH 15.2 % (11.6-14.6)
[2023-06-30 14:30] LABS: CHLORIDE 108 mEq/L (98-107); INDEX HEMOLYSI 1 (1-3); INDEX ICTERIC 2 (1-4); INDEX LIPEMIC 1 (1-3); POTASSIUM 4.5 mEq/L (3.5-5.1); SODIUM 139 mEq/L (136-145)
[2023-06-30 14:34] LABS: CLARITY URINE CLEAR (CLEAR); COLOR URINE YELLOW (YELLOW); GLUCOSE URINE NEGATIVE (NEGATIVE); KETONES URINE NEGATIVE (NEGATIVE); LEUKOCYTE ESTERASE URINE NEGATIVE (NEGATIVE); NITRITE URINE NEGATIVE (NEGATIVE); OCCULT BLOOD URINE NEGATIVE (NEGATIVE); PROTEIN URINE NEGATIVE (NEGATIVE); SPECIFIC GRAVITY URINE 1.007 (1.005-1.030)
[2023-06-30 14:38] LABS: ACETAMINOPHEN < 2 ug/mL (10-30); ALANINE AMINOTRANSFERASE 41 IU/L (13-61); ALBUMIN 2.3 g/dL (3.4-5.0); ASPARTATE AMINOTRANSFERASE 42 IU/L (15-37); BILIRUBIN TOTAL 1.9 mg/dL (0.1-1.0); CALCIUM 8.5 mg/dL (8.5-10.1); CARBON DIOXIDE 24 mEq/L (21-32); CREATININE 1.7 mg/dL (0.6-1.3); ETHANOL BLOOD < 10 mg/dL (-10); GLUCOSE 151 mg/dL (70-105); PROTEIN TOTAL 6.9 g/dL (6.0-8.3); UREA NITROGEN BLOOD 38 mg/dL (7-21)
[2023-06-30 14:57] LABS: *AMPHETAMINES SCREEN URINE NEGATIVE (NEGATIVE); *BARBITURATES SCREEN URINE NEGATIVE (NEGATIVE); *BENZODIAZEPINES SCREEN URINE NEGATIVE (NEGATIVE); *COCAINE SCREEN URINE PRESUMTIVE POSITIVE (NEGATIVE); CANNABINOID URINE SCREEN NEGATIVE (NEGATIVE); ECSTASY MDMA SCREEN URINE NEGATIVE (NEGATIVE); METHADONE URINE SCREEN NEGATIVE (NEGATIVE); OPIATES URINE SCREEN PRESUMTIVE POSITIVE (NEGATIVE); PHENCYCLIDINE URINE SCREEN PRESUMTIVE POSITIVE (NEGATIVE)
[2023-06-30 16:00] VITALS: BP 107/67; PULSE 83; RESP 16; TEMP 99
== END 2023-06-30 17:21 | disposition left against medical advice (07) ==
LOC: MERGE 13:08 → ER 13:08
DX: F19.10 Other psychoactive substance abuse, uncomplicated (principal); I10 Essential (primary) hypertension
CPT/HCPCS: 80053; 80305; 81003; 80307; 80329; 80320; 82962; 85025; 36415; 70450; 93005; 99284; Z7610 ×2; G0480

== ENCOUNTER 2023-08-12 10:57 | Inpatient (IN) | payer MEDICARE, MEDICAID ==
[~2023-08-12] VITALS: Ht 188 cm; Wt 87.5 kg
[2023-08-12 12:20] LABS: BASOPHILS % 1.2 % (0.0-2.0); DIFFERENTIAL COMMENT 0; HEMATOCRIT. 46.2 % (42.0-52.0); HEMOGLOBIN. 14.8 g/dL (14.0-18.0); LYMPHOCYTES % 37.1 % (20.0-50.0); MEAN CORPUSCULAR HEMOGLOBIN 25.4 pg (28.0-32.0); MEAN CORPUSCULAR HGB CONC 32.1 g/dL (31.0-37.0); MEAN CORPUSCULAR VOLUME 79.1 fL (80.0-94.0); MEAN PLATELET VOLUME 9.7 fl (7.4-10.4); MONOCYTES % 13.4 % (2.0-8.0); NEUTROPHILS % 46.3 % (40.0-76.0); PLATELET 96 x1000/uL (130-400); RED BLOOD CELL COUNT 5.84 mill/uL (4.7-6.1); RED CELL DISTRIBUTION WIDTH 16.1 % (11.6-14.6); WHITE BLOOD COUNT 4.6 x1000/uL (4.5-11.0)
[2023-08-12 12:28] LABS: CALCIUM 8.2 mg/dL (8.5-10.1); CHLORIDE 109 mEq/L (98-107); INDEX HEMOLYSI 2 (1-3); INDEX ICTERIC 2 (1-4); INDEX LIPEMIC 1 (1-3); SODIUM 138 mEq/L (136-145)
[2023-08-12 12:37] LABS: ALANINE AMINOTRANSFERASE 35 IU/L (13-61); ALBUMIN 2.7 g/dL (3.4-5.0); ASPARTATE AMINOTRANSFERASE 46 IU/L (15-37); BILIRUBIN TOTAL 2.8 mg/dL (0.1-1.0); CARBON DIOXIDE 26 mEq/L (21-32); CREATININE 1.2 mg/dL (0.6-1.3); GLUCOSE 106 mg/dL (70-105); NT PRO B-TYPE NATRIURETIC PEP 21297 pg/mL (5-125); TROPONIN I HIGH SENSITIVITY 26 ng/L (<78); UREA NITROGEN BLOOD 21 mg/dL (7-21)
[2023-08-12] MEDS ORDERED: ENALAPRIL 2.5MG/2ML VIAL 2ML IV ONE (13:45)
[2023-08-12] MEDS ORDERED: FUROSEMIDE 40MG/4ML VIAL IVP ONE (13:45)
[2023-08-12 20:45] VITALS: BP 114/91; PULSE 115; RESP 20; TEMP 98.4
[2023-08-12] MEDS: HYDROCODONE/ACETAMINOPHEN 5/325MG TABLET PO PRN (21:56)
[2023-08-12] MEDS ORDERED: ONDANSETRON HCL 4MG/2ML INJ IV PRN (22:00)
[2023-08-12] MEDS ORDERED: CARV12.545 PO (22:00)
[2023-08-12] MEDS ORDERED: METO-539 PO (22:00)
[2023-08-12] MEDS ORDERED: LOSA50TA41 PO (22:00)
[2023-08-12] MEDS ORDERED: SPIR50TA5 PO (22:00)
[2023-08-12] MEDS ORDERED: TAMS-11 PO (22:00)
[2023-08-12] MEDS ORDERED: FURO80TA3 PO (22:00)
[2023-08-12] MEDS ORDERED: NALOXONE HCL 0.4MG/ML VIAL IV PRN (22:00)
[2023-08-12] MEDS ORDERED: POTA-204 PO (22:00)
[2023-08-13] VITALS: BP 125/96; PULSE 99; RESP 20; TEMP 97.9
[2023-08-13] MEDS: HYDROCODONE/ACETAMINOPHEN 5/325MG TABLET PO PRN ×5 (02:07→20:54)
[2023-08-13 04:00] VITALS: BP 132/91; PULSE 113; RESP 20; TEMP 98
[2023-08-13 07:05] LABS: HEMATOCRIT. 43.2 % (42.0-52.0); HEMOGLOBIN. 13.7 g/dL (14.0-18.0); MEAN CORPUSCULAR HEMOGLOBIN 25.3 pg (28.0-32.0); MEAN CORPUSCULAR HGB CONC 31.7 g/dL (31.0-37.0); MEAN CORPUSCULAR VOLUME 79.7 fL (80.0-94.0); MEAN PLATELET VOLUME 10.4 fl (7.4-10.4); PLATELET 86 x1000/uL (130-400); RED BLOOD CELL COUNT 5.42 mill/uL (4.7-6.1); RED CELL DISTRIBUTION WIDTH 16.3 % (11.6-14.6); WHITE BLOOD COUNT 4.9 x1000/uL (4.5-11.0)
[2023-08-13 07:49] LABS: CHLORIDE 109 mEq/L (98-107); INDEX HEMOLYSI 2 (1-3); INDEX ICTERIC 2 (1-4); INDEX LIPEMIC 1 (1-3); POTASSIUM 4.1 mEq/L (3.5-5.1); SODIUM 140 mEq/L (136-145)
[2023-08-13 07:50] LABS: DIFFERENTIAL COMMENT 1
[2023-08-13 07:58] LABS: CALCIUM 8.1 mg/dL (8.5-10.1); CARBON DIOXIDE 28 mEq/L (21-32); CREATININE 1.4 mg/dL (0.6-1.3); GLUCOSE 124 mg/dL (70-105); UREA NITROGEN BLOOD 24 mg/dL (7-21)
[2023-08-13 08:00] VITALS: BP 137/98; PULSE 116; PULSE 59; RESP 18; RESP 20; TEMP 97.8
[2023-08-13] MEDS: CARVEDILOL 12.5MG TABLET PO SCH ×2 (08:46→20:44)
[2023-08-13] MEDS: ASPIRIN 81MG TABLET PO SCH (08:47)
[2023-08-13] MEDS: LOSARTAN 50 MG TABLET PO SCH (08:48)
[2023-08-13] MEDS: POTASSIUM CHLORIDE 20MEQ TABLET SR PO SCH ×2 (08:48→16:24)
[2023-08-13] MEDS: SPIRONOLACTONE 25MG TABLET PO SCH (08:49)
[2023-08-13] MEDS ORDERED: FUROSEMIDE 40MG/4ML VIAL IVP SCH (09:00)
[2023-08-13] MEDS ORDERED: ENOXAPARIN 40MG/0.4ML SYR SUBCUT SCH (09:00)
[2023-08-13 12:00] VITALS: BP 98/74; PULSE 104; RESP 20; TEMP 97.4
[2023-08-13] MEDS ORDERED: METOLAZONE 2.5MG TABLET PO SCH (12:45)
[2023-08-13 16:00] VITALS: BP 104/73; PULSE 100; RESP 18; TEMP 97.3
[2023-08-13 16:15] LABS: *AMPHETAMINES SCREEN URINE NEGATIVE (NEGATIVE); *BARBITURATES SCREEN URINE NEGATIVE (NEGATIVE); *BENZODIAZEPINES SCREEN URINE NEGATIVE (NEGATIVE); *COCAINE SCREEN URINE PRESUMTIVE POSITIVE (NEGATIVE); CANNABINOID URINE SCREEN NEGATIVE (NEGATIVE); ECSTASY MDMA SCREEN URINE NEGATIVE (NEGATIVE); OPIATES URINE SCREEN PRESUMTIVE POSITIVE (NEGATIVE); PHENCYCLIDINE URINE SCREEN NEGATIVE (NEGATIVE)
[2023-08-13] MEDS: FUROSEMIDE 40MG/4ML VIAL IVP SCH (17:36)
[2023-08-13 18:26] LABS: TROPONIN I HIGH SENSITIVITY 23 ng/L (<78)
[2023-08-13 20:00] VITALS: BP 98/64; PULSE 80; RESP 18; TEMP 97.9
[2023-08-13 20:28] LABS: ANISOCYTOSIS 1+; MICROCYTOSIS 1+; PLATELET ESTIMATE DECREASED
[2023-08-14] VITALS: BP 103/67; PULSE 77; RESP 18; TEMP 98.3
[2023-08-14] MEDS: HYDROCODONE/ACETAMINOPHEN 5/325MG TABLET PO PRN ×4 (03:32→19:48)
[2023-08-14 04:00] VITALS: BP 101/65; PULSE 86; RESP 20; TEMP 98.2
[2023-08-14] MEDS: FUROSEMIDE 40MG/4ML VIAL IVP SCH ×2 (05:34→17:33)
[2023-08-14 08:00] VITALS: BP 114/78; PULSE 108; RESP 18; TEMP 97.8
[2023-08-14] MEDS: ASPIRIN 81MG TABLET PO SCH (08:49)
[2023-08-14] MEDS: SPIRONOLACTONE 25MG TABLET PO SCH (08:49)
[2023-08-14] MEDS: CARVEDILOL 12.5MG TABLET PO SCH ×2 (08:49→21:00)
[2023-08-14] MEDS: POTASSIUM CHLORIDE 20MEQ TABLET SR PO SCH ×2 (08:50→17:34)
[2023-08-14] MEDS: LOSARTAN 50 MG TABLET PO SCH (09:00)
[2023-08-14 12:00] VITALS: BP 113/69; PULSE 78; RESP 16; TEMP 97.9
[2023-08-14 16:00] VITALS: BP 108/78; PULSE 80; RESP 18; TEMP 97.6
[2023-08-14 20:00] VITALS: BP 96/62; PULSE 76; RESP 18; TEMP 97.5
[2023-08-15] VITALS (7 sets, daily range): BP systolic 103–127; BP diastolic 62–91; PULSE 73–84; RESP 16–20; TEMP 97.2–98.6; O2SAT 96
[2023-08-15] MEDS: HYDROCODONE/ACETAMINOPHEN 5/325MG TABLET PO PRN ×3 (00:51→12:10)
[2023-08-15] MEDS: FUROSEMIDE 40MG/4ML VIAL IVP SCH (05:58)
[2023-08-15] MEDS: LOSARTAN 50 MG TABLET PO SCH (08:20)
[2023-08-15] MEDS: CARVEDILOL 12.5MG TABLET PO SCH (08:21)
[2023-08-15] MEDS: ASPIRIN 81MG TABLET PO SCH (08:24)
[2023-08-15] MEDS: POTASSIUM CHLORIDE 20MEQ TABLET SR PO SCH (08:24)
[2023-08-15] MEDS: SPIRONOLACTONE 25MG TABLET PO SCH (08:26)
[2023-08-15] MEDS ORDERED: LOSA25TA26 MT (10:32)
[2023-08-15] MEDS ORDERED: SPIR25TA PO (10:32)
[2023-08-15] MEDS ORDERED: FURO-151 MT (10:32)
[2023-08-15] MEDS ORDERED: POTA-205 MT (10:32)
[2023-08-15] MEDS ORDERED: CARV6.2548 MT (10:32)
[2023-08-15] MEDS ORDERED: FUROSEMIDE 100MG/10ML VIAL IVP SCH (18:00)
== END 2023-08-15 14:53 | disposition home or self-care (01) | DRG 194 ==
LOC: ER 10:57 → EDBEDREQ 13:41 → EDBEDREQTM 13:41 → 7WST 20:26
PROVIDERS: ADMIT Internal Medicine; ATTEND Internal Medicine
DX: I11.0 Hypertensive heart disease with heart failure (principal); E43 Unspecified severe protein-calorie malnutrition; D69.6 Thrombocytopenia, unspecified; L97.919 Non-pressure chronic ulcer of unspecified part of right lower leg with unspecified severity; I50.23 Acute on chronic systolic (congestive) heart failure; E11.9 Type 2 diabetes mellitus without complications; Z20.822 Contact with and (suspected) exposure to COVID-19; E78.5 Hyperlipidemia, unspecified; I16.0 Hypertensive urgency; E78.00 Pure hypercholesterolemia, unspecified; F17.210 Nicotine dependence, cigarettes, uncomplicated; Z88.6 Allergy status to analgesic agent; Z88.8 Allergy status to other drugs, medicaments and biological substances; Z79.899 Other long term (current) drug therapy; Z68.24 Body mass index [BMI] 24.0-24.9, adult; Z82.49 Family history of ischemic heart disease and other diseases of the circulatory system
CPT/HCPCS: 36415; 71045; 80048; 80053; 80305; 83880; 84484; 85025; 87426; 93005; 93306; 99285; J1940; J3490

== ENCOUNTER 2024-02-23 19:41 | Emergency (ER) | payer MEDICARE, MEDICAID ==
[~2024-02-23] VITALS: Ht 188 cm; Wt 90.0 kg
[~2024-02-23 19:41] MED LIST changes: -ACET-3524 PO; +APIX5TAB MT; -CARV3.1242 MT; +CARV6.2548 MT; -CEPH500C2 MT; +FURO-151 MT; -FURO-151 PO; -FURO40TA5 PO; -GABA-529 MT; -GABA100C MT; -LIPITOR; +LOSA50TA41 PO; -METF-414 MT; +POTA-204 PO; -QUET25TA MT; +SPIR50TA5 PO; -TAMS-11 MT; +TAMS-11 PO; -TOPUD MT
[2024-02-23 19:51] VITALS: O2SAT 99
[2024-02-23] MEDS ORDERED: HYDROCODONE/ACETAMINOPHEN 10/325MG TABLET PO ONE (21:15)
[2024-02-23] MEDS: HYDROCODONE/ACETAMINOPHEN 10/325MG TABLET PO NR (22:00)
[2024-02-23] MEDS ORDERED: TRAM50TA3 MT (23:28)
[2024-02-24] MEDS ORDERED: SPIR50TA5 PO (00:17)
[2024-02-24] MEDS ORDERED: FURO-151 MT (00:17)
[2024-02-24] MEDS ORDERED: POTA-205 MT (00:17)
[2024-02-24] MEDS: FUROSEMIDE 20MG TABLET PO ONE (05:00)
[2024-02-24 14:58] VITALS: BP 139/84; PULSE 75; RESP 17; TEMP 98.8
[2024-02-24] MEDS: KETOROLAC 60MG/2ML VIAL IM ONE (14:58)
== END 2024-02-24 22:47 | disposition home or self-care (01) ==
LOC: ER 19:41
DX: G89.29 Other chronic pain (principal); M54.50 Low back pain, unspecified; E11.9 Type 2 diabetes mellitus without complications; I11.0 Hypertensive heart disease with heart failure; I50.9 Heart failure, unspecified; E78.00 Pure hypercholesterolemia, unspecified; Z88.8 Allergy status to other drugs, medicaments and biological substances
CPT/HCPCS: 99283; 96372; J1885